=== PATIENT | male | born 1990 | race Caucasian/White ===

== ENCOUNTER 2018-04-27 22:15 | Emergency (ER) | payer OTHER ==
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
== END 2018-04-27 22:50 | disposition still patient (30) ==
LOC: ER 22:15
DX: Z02.89 Encounter for other administrative examinations (principal)
CPT/HCPCS: 93005; Z7502